=== PATIENT | male | born 1965 | race Hispanic/Latino ===

== ENCOUNTER 2021-02-19 10:56 | Emergency (ER) | payer MEDICARE, OTHER, SELFPAY ==
--- NOTE | 2021-02-19 11:37 | ER ---
Nurse's Notes [facility] Name: Murali Gunderson Age: 55 yrs Sex: Male : 1965 Arrival Date: 02/19/2021 Time: 10:57 Bed Waiting Private MD: Diagnosis: Historical: Assessment: 02/19 11:36 Reassessment: pt not in lobby, told registration he was leaving because he wanted to iw have a visitor back with him. ED Course: :57 Patient arrived in ED. as 11:30 Triage completed. iw Administered Medications: No medications were administered Outcome: 11:37 Patient left the ED. iw Signatures: Daja Greenwood Irene RN RN iw Corrections: (The following items were deleted from the chart) 11: Chief complaint: Patient states: lower abd pain X 2 days, no urinary symptoms, iw +n/v/d iw 11: Coronavirus screen: nausea, vomiting. Client presents with at least one sign or iw symptom that may indicate coronavirus-19. 11: Ebola Screen: Patient negative for fever greater than or equal to 101.5 degrees iw Fahrenheit, and additional compatible Ebola Virus Disease symptoms Patient denies exposure to infectious person. Patient denies travel to an Ebola-affected area in the 21 days before illness onset. No symptoms or risks identified at this time. 11:29 Initial Sepsis Screen: Does the patient meet any 2 criteria? No. Patient's iw initial sepsis screen is negative. Does the patient have a suspected source of infection? No. Patient's initial sepsis screen is negative. 11:29 Risk Assessment: Do you want to hurt yourself or someone else? Patient reports no iw desire to harm self or others. 11:29 Onset of symptoms was February 17, 2021 [facility] 11:29 Method Of Arrival: Ambulatory [facility] 11:29 BP 112 / 87; Pulse 87bpm; Resp 16bpm; Pulse Ox 100%; Temp 97.4F; [facility] 11:29 Acuity: JOSHUA 3 [facility] 11:30 Allergies: No Known Allergies; 11:30 Home Meds: None; iw :30 PMHx: None; iw iw PSHx: ; iw iw
== END 2021-02-19 11:37 | disposition left against medical advice (07) ==
LOC: ER 10:56
DX: Z53.21 Procedure and treatment not carried out due to patient leaving prior to being seen by health care provider (principal)
CPT/HCPCS: 99281